=== PATIENT | female | born 1945 ===

== ENCOUNTER 2018-09-24 01:47 | Inpatient (IN) | payer MEDICARE ==
[2018-09-24 01:48] VITALS: BMI 28.3
[2018-09-24] MEDS ORDERED: Sodium Chloride 0.9% 1,000 ML IV ONE (02:16)
--- NOTE | 2018-09-24 02:44 | C.PDOC ---
History Of Present Illness 73 year old female presents to the ER with a complaint of intermittent chronic right subcostal and RUQ pain. Denies nausea or vomiting. Chief Complaint (Nursing): Abdominal Pain History Per: Patient History/Exam Limitations: no limitations Onset/Duration Of Symptoms: Days, Intermittent Episodes Current Symptoms Are (Timing): Still Present Location Of Pain/Discomfort: RUQ, Other (Right subcostal) Radiation Of Pain To:: None Associated Symptoms: denies: Nausea, Vomiting Exacerbating Factors: None Alleviating Factors: None Recent travel outside of the [place]: No Past Medical History Reviewed: Historical Data, Nursing Documentation, Vital Signs Vital Signs: Last Vital Signs Temp 97.6 F 09/24/18 01:56 Pulse 78 09/24/18 01:56 Resp 22 09/24/18 01:56 BP 159/90 H 09/24/18 01:56 Pulse Ox 100 09/24/18 01:56 - Medical History PMH: Gall Bladder Disease (stones), HTN, Hypothyroidism Surgical History: Appendectomy (12 yrs old) - [facility] Procedures PERCUTAN NEEDLE BIOPSY OF BREAST (09/23/13) Family History: States: Unknown Family Hx (Non-contributory) - Social History Hx Tobacco Use: No Hx Alcohol Use: No Hx Substance Use: No - Immunization History Hx Tetanus Toxoid Vaccination: Yes Hx Influenza Vaccination: No Hx Pneumococcal Vaccination: No Review Of Systems Constitutional: Negative for: Fever, Chills Cardiovascular: Negative for: Chest Pain, Palpitations Respiratory: Negative for: Cough, Shortness of Breath Gastrointestinal: Positive for: Other (right subcostal and RUQ pain). Negative for: Nausea, Vomiting Neurological: Negative for: Weakness, Numbness Physical Exam - Physical Exam Appears: Non-toxic, Other (Mild distress) Skin: Normal Color, Warm, Dry Head: Atraumatic, Normacephalic Oral Mucosa: Moist Neck: Normal, Supple Chest: Symmetrical, No Tenderness Cardiovascular: Rhythm Regular Respiratory: Normal Breath Sounds, No Rales, No Rhonchi, No Wheezing Gastrointestinal/Abdominal: Soft, Tenderness (RLQ and right lower costal area) Extremity: Normal ROM (x4) Neurological/Psych: Oriented x3, Normal Speech ED Course And Treatment - Laboratory Results Result Diagrams: 09/24/18 02:59 09/24/18 02:59 O2 Sat by Pulse Oximetry: 100 (Room air) Pulse Ox Interpretation: Normal Progress Note: CT abd/pel, CT chest, blood work, and EKG ordered. IV fluids and toradol administered. NG tube inserted without difficulty. Disposition Discussed With : Willi Sierra Doctor Will See Patient In The: Hospital Counseled Patient/Family Regarding: Diagnosis - Disposition Disposition: HOSPITALIZED Disposition Time: 06:12 Condition: STABLE - POA Present On Arrival: None - Clinical Impression Clinical Impression: Partial small bowel obstruction - Scribe Statement The provider has reviewed the documentation as recorded by the Stefanyibsamreen Alcantar All medical record entries made by the Stefanyibsamreen were at my direction and pe rsonally dictated by me. I have reviewed the chart and agree that the record accurately reflects my personal performance of the history, physical exam, medical decision making, and the department course for this patient. I have also personally directed, reviewed, and agree with the discharge instructions and disposition.
[2018-09-24 03:10] LABS: BASO % 0.6 % (0.0-2.0); EOS # 0.1 K/uL (0.0-0.7); EOS % 2.4 % (0.0-4.0); LYMPH # 1.9 K/uL (1.0-4.3); LYMPH % 50.9 % (20.0-40.0); MEAN CELL VOLUME 89.4 fL (81.0-99.0); MEAN CORPUSCULAR HEMOGLOBIN 29.7 pg (27.0-31.0); MEAN CORPUSCULAR HGB CONC 33.2 g/dL (33.0-37.0); MEAN PLATELET VOLUME 11.4 fL (7.2-11.7); MONO # 0.3 K/uL (0.0-0.8); NEUT # 1.4 K/uL (1.8-7.0); NEUT % 38.1 % (50.0-75.0); NRBC % 0.1 % (0.0-2.0); PROTHROMBIN TIME 11.3 SECONDS (9.7-12.2); RBC 4.7 Mil/uL (3.80-5.20); RED CELL DISTRIBUTION WIDTH 13.6 % (11.5-14.5); WHITE BLOOD COUNT 3.7 K/uL (4.8-10.8)
[2018-09-24 03:21] LABS: ALB/GLOB RATIO 1.7 (1.0-2.1); ALBUMIN 4.8 g/dL (3.5-5.0); ALT/SGPT 42 U/L (9-52); AST/SGOT 29 U/L (14-36); BLOOD UREA NITROGEN 18 mg/dL (7-17); CALCIUM 8.5 mg/dl (8.6-10.4); GFR NON-AFRICAN AMERICAN > 60
[2018-09-24] MEDS ORDERED: Iodixanol 320 MG/ML 100 ML BOTTLE IV ONE (04:58)
--- NOTE | 2018-09-24 09:06 | CT ---
Date of service: 09/24/2018 PROCEDURE: CT Chest with contrast (Pulmonary Angiogram) HISTORY: chest pain/ elevated D-dimer COMPARISON: None available. TECHNIQUE: Axial computed tomography images were obtained of the chest in the pulmonary arterial phase of enhancement. Coronal and sagittal reformatted images were created and reviewed. Intravenous contrast dose: 100 mL Visipaque 320 Radiation dose: Total exam DLP = 443.85 mGy-cm. This CT exam was performed using one or more of the following dose reduction techniques: Automated exposure control, adjustment of the mA and/or kV according to patient size, and/or use of iterative reconstruction technique. FINDINGS: PULMONARY ARTERIES: Unremarkable. No pulmonary embolism. AORTA: No acute findings. No thoracic aortic aneurysm. No aortic atherosclerotic calcification or mural plaque present. LUNGS: Unremarkable. No nodule, mass or pulmonary consolidation. PLEURAL SPACES: Unremarkable. No effusion or pneumothorax. HEART: Unremarkable. No cardiomegaly. No significant pericardial effusion. LYMPH NODES: No lymphadenopathy. BONES, CHEST WALL: Unremarkable. No fracture or destructive lesion OTHER FINDINGS: Very small hiatal hernia. Possible small gastric diverticulum of the herniated portion of the stomach. Multinodular enlarged left lobe of thyroid. Status post right hemithyroidectomy with surgical clips in thyroid. Recommend correlation with thyroid ultrasound examination. Sections through upper abdomen show multiple dilated loops of small bowel in the upper abdomen. Recommend correlation with CT abdomen/pelvis performed on same date. Please see report of this examination. IMPRESSION: No evidence of pulmonary embolism. Greater is multinodular left lobe of thyroid. Right hemithyroidectomy. Possible small bowel obstruction. Correlate with CT abdomen/pelvis small hiatal hernia with possible small gastric diverticulum of herniated segment. The preliminary findings for this examination were reported by [facility] at 6:04 a.m. on 09/24/2018. There is concurrence of this report with the preliminary findings.
--- NOTE | 2018-09-24 09:28 | CP.PCM.HP ---
<Dl Sullivan - Last Filed: 09/24/18 09:28> History of Present Illness - History of Present Illness History of Present Illness: Dl Sullivan PGY1 H&P for Dr. Judge Pt is a 73yoF with PMH of Hypothyroid, HTN, cholelithiasis, presenting to ED with abdominal pain. She reports the abdominal pain began 3 years ago, but acutely worsened over the past 7 days. She reports R sided abdominal pain that radiates to the back and R shoulder, which she rates 10/10. She describes the pain as burning and intermittent. She tried taking baking soda at home which did not provide relief. Pt reports associated vomiting all day yesterday, which was food-colored. Pt denies blood in vomit or stool. She reports normal formed bowel movements, denying any diarrhea or constipation. She complains of chills, but denies fever, chest pain, shortness of breath, or dysuria. She also complains of a burning sensation in the lower abdomen/bladder area, but denies pyuria. She currently reports improvement of the abdominal pain. Pt reports last colonoscopy and EGD 09/01, with normal results aside from benign diverticula. SxH: appendectomy 10y ago FamH: denies SocH: denies tobacco, etoh, or recreational drug use. Allergies: PCN Meds: as per EMR PMD: [place] Present on Admission - Present on Admission Any Indicators Present on Admission: No Review of Systems - Review of Systems Review of Systems: as per HPI Past Patient History - Past Social History Smoking Status: Never Smoked - CARDIAC Hx Hypertension: Yes - ENDOCRINE/METABOLIC Hx Hypothyroidism: Yes - GASTROINTESTINAL Hx Gall Bladder Disease: Yes (stones) - PSYCHIATRIC Hx Substance Use: No - SURGICAL HISTORY Hx Appendectomy: Yes (12 yrs old) - ANESTHESIA Hx Anesthesia: No Meds Allergies/Adverse Reactions: Allergies Allergy/AdvReac Type Severity Reaction Status Date / Time Penicillins Allergy Mild Verified 09/24/18 02:01 Physical Exam - Constitutional Appears: In Acute Distress - Head Exam Head Exam: ATRAUMATIC, NORMOCEPHALIC - Eye Exam Eye Exam: EOMI, Normal appearance, PERRL Pupil Exam: NORMAL ACCOMODATION - ENT Exam Additional comments: NG tube in place, draining yellow/green thick fluid - Neck Exam Neck exam: Positive for: Normal Inspection - Respiratory Exam Respiratory Exam: Clear to Auscultation Bilateral, NORMAL BREATHING PATTERN. absent: Rales, Rhonchi, Wheezes - Cardiovascular Exam Cardiovascular Exam: REGULAR RHYTHM, +S1, +S2. absent: Gallop, Rubs, Systolic Murmur - GI/Abdominal Exam GI & Abdominal Exam: Normal Bowel Sounds, Soft. absent: Distended, Firm, T enderness - Extremities Exam Extremities exam: Negative for: pedal edema - Neurological Exam Neurological exam: Alert, Oriented x3 - Psychiatric Exam Psychiatric exam: Normal Affect, Normal Mood - Skin Skin Exam: Normal Color Results - Vital Signs Recent Vital Signs: Last Vital Signs Temp 98.0 F 09/24/18 06:24 Pulse 72 09/24/18 07:51 Resp 14 09/24/18 07:51 BP 172/97 H 09/24/18 07:51 Pulse Ox 98 09/24/18 07:51 - Labs Result Diagrams: 09/24/18 02:59 09/24/18 02:59 Labs: Laboratory Results - last 24 hr 09/24/18 09/24/18 09/24/18 02:59 02:59 02:59 WBC 3.7 L RBC 4.70 Hgb 14.0 Hct 42.0 MCV 89.4 MCH 29.7 MCHC 33.2 RDW 13.6 Plt Count 135 MPV 11.4 Neut % (Auto) 38.1 L Lymph % (Auto) 50.9 H [place] % (Auto) 8.0 Eos % (Auto) 2.4 Baso % (Auto) 0.6 Neut # (Auto) 1.4 L Lymph # (Auto) 1.9 [place] # (Auto) 0.3 Eos # (Auto) 0.1 Baso # (Auto) 0.0 PT 11.3 INR 1.0 APTT 28 D-Dimer, Quantitative 288 H Sodium 139 Potassium 4.2 Chloride 100 Carbon Dioxide 28 Anion Gap 15 BUN 18 H Creatinine 0.7 Est GFR ( Amer) > 60 Est GFR (Non-Af Amer) > 60 Random Glucose 112 H Calcium 8.5 L Total Bilirubin 0.4 AST 29 ALT 42 Alkaline Phosphatase 47 Troponin I < 0.0120 Total Protein 7.7 Albumin 4.8 Globulin 2.9 Albumin/Globulin Ratio 1.7 Assessment & Plan - Assessment and Plan (Free Text) Assessment: 73yoF with PMH of Hypothyroid, HTN, cholelithiasis, presenting to ED with abdominal pain, admitted for further evaluation and treatment of partial SBO. Plan: SBO - CT abdomen/pelvis: partial SBO, transition zone in LLQ. f/u official read - CT chest: no PE - NG tube in place, draining thick yellow/green fluid - NS @150cc/hr - ibuprofen 400mg PO q6h PRN - tylenol 650mg PO q6h PRN - toradol 30mg IV q6h PRN - zofran 4mg IV q6h PRN - f/u CXR 12pm and tomorrow 6am to avoid fluid overload - f/u lactate 12pm and 4pm - f/u UA - General surgery consulted, Dr. Poe - recs appreciated - GI consulted, Dr. Pack - f/u recs HTN - resume home atenolol 50mg PO daily H/o Hypothyroid - f/u TSH, free T4 - resume home synthroid 75mcg PO daily PPx GI: not indicated at this time DVT: SCDs Pt seen and case reviewed with Dr. Judge <Jesus Judge - Last Filed: 09/24/18 16:49> Results - Vital Signs Recent Vital Signs: Last Vital Signs Temp 98.0 F 09/24/18 06:24 Pulse 78 09/24/18 15:05 Resp 18 09/24/18 15:05 BP 152/89 H 09/24/18 15:05 Pulse Ox 97 09/24/18 15:05 - Labs Result Diagrams: 09/24/18 02:59 09/24/18 02:59 Labs: Laboratory Results - last 24 hr 09/24/18 09/24/18 09/24/18 02:59 02:59 02:59 WBC 3.7 L RBC 4.70 Hgb 14.0 Hct 42.0 MCV 89.4 MCH 29.7 MCHC 33.2 RDW 13.6 Plt Count 135 MPV 11.4 Neut % (Auto) 38.1 L Lymph % (Auto) 50.9 H [place] % (Auto) 8.0 Eos % (Auto) 2.4 Baso % (Auto) 0.6 Neut # (Auto) 1.4 L Lymph # (Auto) 1.9 [place] # (Auto) 0.3 Eos # (Auto) 0.1 Baso # (Auto) 0.0 PT 11.3 INR 1.0 APTT 28 D-Dimer, Quantitative 288 H Sodium 139 Potassium 4.2 Chloride 100 Carbon Dioxide 28 Anion Gap 15 BUN 18 H Creatinine 0.7 Est GFR ( Amer) > 60 Est GFR (Non-Af Amer) > 60 Random Glucose 112 H Lactic Acid Calcium 8.5 L Total Bilirubin 0.4 AST 29 ALT 42 Alkaline Phosphatase 47 Troponin I < 0.0120 Total Protein 7.7 Albumin 4.8 Globulin 2.9 Albumin/Globulin Ratio 1.7 09/24/18 12:50 WBC RBC Hgb Hct MCV MCH MCHC RDW Plt Count MPV Neut % (Auto) Lymph % (Auto) [place] % (Auto) Eos % (Auto) Baso % (Auto) Neut # (Auto) Lymph # (Auto) [place] # (Auto) Eos # (Auto) Baso # (Auto) PT INR APTT D-Dimer, Quantitative Sodium Potassium Chloride Carbon Dioxide Anion Gap BUN Creatinine Est GFR ( Amer) Est GFR (Non-Af Amer) Random Glucose Lactic Acid 1.3 Calcium Total Bilirubin AST ALT Alkaline Phosphatase Troponin I Total Protein Albumin Globulin Albumin/Globulin Ratio Attending/Attestation - Attestation I have personally seen and examined this patient.: Yes I have fully participated in the care of the patient.: Yes I have reviewed all pertinent clinical information: Yes Notes (Text): 09/24/18 16:43 Medical attending: Patient was seen and examined by me. Agree with the above note by the medical records custodian The patient had already had an NGT placed earlier in the morning and had been evaluated by surgery as well. The patient reported some relief with the NGT however from what she tells us was a very difficult for her this morning. The CT scan showed there was at least a partial SBO Patient will be on IVF as well as we will monitor serum lactic acid - and if need to ABG as well Because she is getting a lot of IVF check a portable CXRAY tommorow in case of fluid overload Jesus Judge
[2018-09-24] MEDS: Sodium Chloride 0.9% 1,000 ML IV SCH ×3 (09:30→19:06)
--- NOTE | 2018-09-24 10:50 | RAD ---
Date of service: 09/24/2018 HISTORY: pt with SBO COMPARISON: 06/22/2013 FINDINGS: LUNGS: No active pulmonary disease. PLEURA: Elevated right hemidiaphragm common nonspecific. Costophrenic angles are clear. No pneumothorax. CARDIOVASCULAR: No aortic atherosclerotic calcification present. Normal cardiac size. No pulmonary vascular congestion. Nasogastric tube extends to left upper quadrant of abdomen. OSSEOUS STRUCTURES: No significant abnormalities. VISUALIZED UPPER ABDOMEN: Normal. OTHER FINDINGS: Surgical clips in right side of thoracic inlet, nonspecific. IMPRESSION: No active disease.
--- NOTE | 2018-09-24 12:17 | CT ---
Date of service:09/24/2018 CT chest, abdomen, and pelvis without IV contrast Indication: chest pain Technique: Contiguous axial images of the chest, abdomen, and pelvis without oral or IV contrast. Coronal and Sagittal reformats generated and reviewed. This CT exam was performed using 1 or more of the following dose reduction techniques: Automated exposure control, adjustment of the MAA and/or kV according to patient size, and/or use of iterative reconstruction technique. Radiation dose: Total exam DLP = 517.02 MGy-cm. Comparison: CT chest performed 09/24/18, abdominal ultrasound performed 06/22/15, CT abdomen and pelvis with contrast performed 04/14/15 Findings: Visualized portions of the inferior thyroid gland; right thyroidectomy. Enlarged heterogeneous left thyroid gland containing coarse calcifications and numerous nodules largest measuring approximately 1.2 cm. Substernal extension of the left thyroid gland. The unenhanced mediastinal and hilar vascular structures appear grossly unremarkable. The heart appears within normal limits of size. There is no focal consolidation, significant pleural effusion, or definite pneumothorax evident. 5 mm right lower lobe nodule (series 4, image 42). 13 mm hypodense mass, posterior inferior right hepatic lobe (series 3, image 99). Nonobstructing bilateral renal calculi. No hydronephrosis. The noncontrast spleen, pancreas, adrenal glands, and gallbladder appear unremarkable. The stomach is nondistended. Lack of oral contrast limits evaluation for bowel pathology. Dilated fluid-filled small bowel loops with evidence of transition in the left lower quadrant; appearance consistent with small bowel obstruction. There is no definite free air. Uterus is present. The urinary bladder appears unremarkable. Degenerative changes of the spine. Vacuum disc phenomenon at L5-S1. Impression: Evidence of small-bowel obstruction with transition point in the left lower quadrant. Indeterminate 13 mm hypodense mass within the posterior inferior right hepatic lobe. This finding is been characterized as a cyst on prior imaging studies. Nonobstructing renal calculi. 5 mm right lower lobe pulmonary nodule. According to the 2017 Fleischner criteria, if the patient is low risk, no routine follow-up is recommended. If the patient is high risk, an optional CT at 12 months is recommended. Visualized portions of the inferior thyroid gland; right thyroidectomy. Enlarged heterogeneous left thyroid gland containing coarse calcifications and numerous nodules largest measuring approximately 1.2 cm. Substernal extension of the left thyroid gland. Preliminary impression was provided by [employer]. Additional incidental findings as above. Study marked for PA review.
[2018-09-24] MEDS: Levothyroxine 75 MCG TAB PO SCH (14:04)
--- NOTE | 2018-09-24 16:07 | RAD ---
Date of service: 09/24/2018 HISTORY: eval SBO COMPARISON: Not available FINDINGS: BOWEL: Normal bowel gas pattern. There is mild retention of the nephrographic contrast status post CT examination of the same date. Small amount of excreted contrast in the urinary bladder. A nasogastric tube is seen with its tip in the region of the distal thoracic esophagus. It is not positioned within the gastric lumen on the basis of this examination. BONES: Normal. OTHER FINDINGS: None. IMPRESSION: Nasogastric tube is positioned in the distal thoracic esophagus and should be replaced or repositioned.
--- NOTE | 2018-09-24 18:04 | CP.PCM.CON ---
History of Present Illness - History of Present Illness History of Present Illness: General Surgery Consult Re: Partial SBO and RUQ pain HPI: 73F presents to the ED complaining of intermittent RUQ pain that radiates to the back and shoulder. Pain has been present for the past 3 years and started to get progressively worse starting last week. Pt mentions that she has not been eating her normal diet due to pain, eating occasionally makes it worse but it also occurs when at rest or when doing chores. + emesis yesterday. She has been worked up for this pain in the past but nothing has been found to be wrong before. Reports Chills. Denies fever, headache, SOB, chest pain, dysuria, hematuria, melena, hematochezia, diarrhea. Last BM yesterday was normal.No other complaints and pain somewhat improved at this time. PMH: Hypothyroid, HTN PSH: hemithyroidectomy, Lasik. Denies any abdominal surgery. SH: Denies tobacco, EtOH, and drug use. FH: Denies All: PCN Meds: See MAR Review of Systems - Review of Systems All systems: reviewed and no additional remarkable complaints except (as per HPI) Past Patient History - Past Medical History & Family History Past Medical History?: Yes - Past Social History Smoking Status: Never Smoked - CARDIAC Hx Hypertension: Yes - PULMONARY Hx Respiratory Disorders: No - NEUROLOGICAL Hx Neurological Disorder: No - HEENT Hx HEENT Problems: No - RENAL Hx Chronic Kidney Disease: No - ENDOCRINE/METABOLIC Hx Hypothyroidism: Yes - HEMATOLOGICAL/ONCOLOGICAL Hx Blood Disorders: No - INTEGUMENTARY Hx Dermatological Problems: No - MUSCULOSKELETAL/RHEUMATOLOGICAL Hx Musculoskeletal Disorders: No Hx Falls: No - GASTROINTESTINAL Hx Gall Bladder Disease: Yes (stones) - GENITOURINARY/GYNECOLOGICAL Hx Genitourinary Disorders: No - PSYCHIATRIC Hx Substance Use: No - SURGICAL HISTORY Hx Appendectomy: Yes (12 yrs old) - ANESTHESIA Hx Anesthesia: Yes Hx Anesthesia Reactions: No Meds Allergies/Adverse Reactions: Allergies Allergy/AdvReac Type Severity Reaction Status Date / Time Penicillins Allergy Mild Verified 09/24/18 02:01 - Medications Medications: Current Medications Acetaminophen (Tylenol 325mg Tab) 650 mg PO Q6 PRN PRN Reason: Fever >100.4 F Atenolol (Tenormin) 50 mg PO DAILY KYLE Last Admin: 09/24/18 14:04 Dose: Not Given Sodium Chloride (Sodium Chloride 0.9%) 1,000 mls @ 150 mls/hr IV .Q6H40M [facility] Last Admin: 09/24/18 16:00 Dose: Not Given Ibuprofen (Motrin Tab) 400 mg PO Q6 PRN PRN Reason: Pain, Mild (1-3) Ketorolac Tromethamine (Toradol) 30 mg IV Q6 PRN PRN Reason: Pain, moderate (4-7) Levothyroxine Sodium (Synthroid) 75 mcg PO DAILY@0630 [facility] Last Admin: 09/24/18 14:04 Dose: Not Given Ondansetron HCl (Zofran Inj) 4 mg IVP Q6 PRN PRN Reason: Nausea/Vomiting Physical Exam - Constitutional Appears: Non-toxic, No Acute Distress - Head Exam Head Exam: ATRAUMATIC, NORMOCEPHALIC - Eye Exam Eye Exam: EOMI. absent: Scleral icterus - ENT Exam ENT Exam: Mucous Membranes Dry Additional comments: trachea midline, NGT in place - Respiratory Exam Respiratory Exam: NORMAL BREATHING PATTERN. absent: Respiratory Distress - Cardiovascular Exam Cardiovascular Exam: RRR, +S1, +S2 - GI/Abdominal Exam GI & Abdominal Exam: Soft, Tenderness (in RUQ). absent: Distended, Firm, Guarding, Rebound, Rigid - Rectal Exam Rectal Exam: Deferred - Extremities Exam Extremities exam: Positive for: normal capillary refill, pedal pulses present. Negative for: calf tenderness - Back Exam Back exam: CVA tenderness (L), CVA tenderness (R) - Neurological Exam Neurological exam: Alert, Oriented x3 - Skin Skin Exam: Dry, Warm Results - Vital Signs Recent Vital Signs: Last Vital Signs Temp 97.8 F 09/24/18 17:29 Pulse 77 09/24/18 17:29 Resp 18 09/24/18 17:29 BP 152/64 H 09/24/18 17:29 Pulse Ox 97 09/24/18 17:29 - Labs Result Diagrams: 09/24/18 02:59 09/24/18 02:59 Labs: Laboratory Results - last 24 hr 09/24/18 09/24/18 09/24/18 02:59 02:59 02:59 WBC 3.7 L RBC 4.70 Hgb 14.0 Hct 42.0 MCV 89.4 MCH 29.7 MCHC 33.2 RDW 13.6 Plt Count 135 MPV 11.4 Neut % (Auto) 38.1 L Lymph % (Auto) 50.9 H [place] % (Auto) 8.0 Eos % (Auto) 2.4 Baso % (Auto) 0.6 Neut # (Auto) 1.4 L Lymph # (Auto) 1.9 [place] # (Auto) 0.3 Eos # (Auto) 0.1 Baso # (Auto) 0.0 PT 11.3 INR 1.0 APTT 28 D-Dimer, Quantitative 288 H Sodium 139 Potassium 4.2 Chloride 100 Carbon Dioxide 28 Anion Gap 15 BUN 18 H Creatinine 0.7 Est GFR ( Amer) > 60 Est GFR (Non-Af Amer) > 60 Random Glucose 112 H Lactic Acid Calcium 8.5 L Total Bilirubin 0.4 AST 29 ALT 42 Alkaline Phosphatase 47 Troponin I < 0.0120 Total Protein 7.7 Albumin 4.8 Globulin 2.9 Albumin/Globulin Ratio 1.7 09/24/18 12:50 WBC RBC Hgb Hct MCV MCH MCHC RDW Plt Count MPV Neut % (Auto) Lymph % (Auto) [place] % (Auto) Eos % (Auto) Baso % (Auto) Neut # (Auto) Lymph # (Auto) [place] # (Auto) Eos # (Auto) Baso # (Auto) PT INR APTT D-Dimer, Quantitative Sodium Potassium Chloride Carbon Dioxide Anion Gap BUN Creatinine Est GFR ( Amer) Est GFR (Non-Af Amer) Random Glucose Lactic Acid 1.3 Calcium Total Bilirubin AST ALT Alkaline Phosphatase Troponin I Total Protein Albumin Globulin Albumin/Globulin Ratio - Imaging and Cardiology CT scan - abdomen Status: Image reviewed by me, Report reviewed by me Assessment & Plan - Assessment and Plan (Free Text) Assessment: 73F with chronic intermittent RUQ pain Plan: HIDA with CCK in AM NPO p MN for test Monitor bowel function D/W Dr. Deepika Boudreaux PGY4
[2018-09-24 22:20] LABS: SQUAMOUS EPITHIAL 5 /hpf (0-5); URINE BACTERIA RARE (<OCC); URINE BILIRUBIN NEGATIVE (NEGATIVE); URINE BLOOD NEGATIVE (NEGATIVE); URINE CLARITY Clear (Clear); URINE COLOR Yellow (YELLOW); URINE GLUCOSE (UA) NORMAL (Normal); URINE LEUKOCYTE ESTERASE NEG Leu/uL (Negative); URINE PROTEIN 1+ mg/dL (NEGATIVE); URINE UROBILINOGEN NORMAL mg/dL (0.2-1.0)
[2018-09-25 00:54] VITALS: RESP 20
[2018-09-25] MEDS: Sodium Chloride 0.9% 1,000 ML IV SCH ×2 (04:21→05:39)
[2018-09-25 06:20] LABS: BASO % 0.4 % (0.0-2.0); EOS # 0.1 K/uL (0.0-0.7); EOS % 2.7 % (0.0-4.0); HEMOGLOBIN 12.3 g/dL (11.0-16.0); LYMPH # 1.8 K/uL (1.0-4.3); LYMPH % 41.2 % (20.0-40.0); MEAN CELL VOLUME 90.5 fL (81.0-99.0); MEAN CORPUSCULAR HEMOGLOBIN 29.6 pg (27.0-31.0); MEAN CORPUSCULAR HGB CONC 32.7 g/dL (33.0-37.0); MEAN PLATELET VOLUME 10.7 fL (7.2-11.7); MONO # 0.3 K/uL (0.0-0.8); MONO % 7.9 % (0.0-10.0); NEUT # 2.1 K/uL (1.8-7.0); NEUT % 47.8 % (50.0-75.0); RBC 4.17 Mil/uL (3.80-5.20); RED CELL DISTRIBUTION WIDTH 14.1 % (11.5-14.5); WHITE BLOOD COUNT 4.4 K/uL (4.8-10.8)
[2018-09-25] MEDS: Levothyroxine 75 MCG TAB PO SCH (06:39)
[2018-09-25 06:42] LABS: ALB/GLOB RATIO 1.3 (1.0-2.1); ALBUMIN 3.6 g/dL (3.5-5.0); ALT/SGPT 37 U/L (9-52); AST/SGOT 25 U/L (14-36); BLOOD UREA NITROGEN 16 mg/dL (7-17); CALCIUM 7.6 mg/dl (8.6-10.4); GFR NON-AFRICAN AMERICAN > 60
[2018-09-25 07:03] LABS: HEPATITIS B SURFACE AG Negative (NEGATIVE)
[2018-09-25 07:08] LABS: HEPATITIS A IGM NEGATIVE (NEGATIVE); HEPATITIS B CORE AB NEGATIVE (NEGATIVE)
[2018-09-25 07:20] LABS: HEPATITIS C ANTIBODY NEGATIVE (NEGATIVE)
--- NOTE | 2018-09-25 08:06 | CP.PCM.CON ---
History of Present Illness - History of Present Illness History of Present Illness: This is a 73 year old woman with abdominal pain. Patient is known to me from the office. She was originally seen 06/25/2017 for episodic right upper quadrant pain lasting up to one week at a time. She had already undergone colonoscopy 08/17/2015 which showed diverticulosis of ascending colon and EGD 09/26/2015 which showed hiatal hernia and acute gastritis. CT scan 05/01/2018 showed fatty liver, 1.6 cm hepatic cyst, right kidney stone. She presented to the ER 09/24/2018 with a one-week history of recurrent RUQ pain radiating to the back and right shoulder, burning, accompanied by nausea and vomiting. Evaluation in the ER included CT scan, which showed dilated small bowel loops with transition in the LLQ, consistent with partial SBO. At present, she denies having abdominal pain, nausea, vomiting, heartburn, diarrhea or rectal bleeding. She has not had a bowel movement since Friday. Review of Systems - Review of Systems All systems: reviewed and no additional remarkable complaints except - Constitutional Constitutional: absent: Chills, Fever, Headache - Cardiovascular Cardiovascular: absent: Chest Pain, Palpitations - Respiratory Respiratory: absent: Cough, Dyspnea - Gastrointestinal Gastrointestinal: Abdominal Pain, Constipation, Nausea, Vomiting. absent: Diarrhea, Heartburn, Hematochezia, Melena - Genitourinary Genitourinary: absent: Dysuria, Hematuria Past Patient History - Past Medical History & Family History Past Medical History?: Yes - Past Social History Smoking Status: Never Smoked - CARDIAC Hx Hypertension: Yes - PULMONARY Hx Respiratory Disorders: No - NEUROLOGICAL Hx Neurological Disorder: No - HEENT Hx HEENT Problems: No - RENAL Hx Chronic Kidney Disease: No - ENDOCRINE/METABOLIC Hx Hypothyroidism: Yes - HEMATOLOGICAL/ONCOLOGICAL Hx Blood Disorders: No - INTEGUMENTARY Hx Dermatological Problems: No - MUSCULOSKELETAL/RHEUMATOLOGICAL Hx Musculoskeletal Disorders: No Hx Falls: No - GASTROINTESTINAL Hx Gall Bladder Disease: Yes (stones) - GENITOURINARY/GYNECOLOGICAL Hx Genitourinary Disorders: No - PSYCHIATRIC Hx Substance Use: No - SURGICAL HISTORY Hx Appendectomy: Yes (12 yrs old) - ANESTHESIA Hx Anesthesia: Yes Hx Anesthesia Reactions: No Meds Allergies/Adverse Reactions: Allergies Allergy/AdvReac Type Severity Reaction Status Date / Time Penicillins Allergy Mild Verified 09/24/18 02:01 - Medications Medications: Current Medications Acetaminophen (Tylenol 325mg Tab) 650 mg PO Q6 PRN PRN Reason: Fever >100.4 F Atenolol (Tenormin) 50 mg PO DAILY [facility] Last Admin: 09/24/18 14:04 Dose: Not Given Sodium Chloride (Sodium Chloride 0.9%) 1,000 mls @ 150 mls/hr IV .Q6H40M [facility] Last Admin: 09/25/18 05:39 Dose: Not Given Ibuprofen (Motrin Tab) 400 mg PO Q6 PRN PRN Reason: Pain, Mild (1-3) Ketorolac Tromethamine (Toradol) 30 mg IV Q6 PRN PRN Reason: Pain, moderate (4-7) Last Admin: 09/25/18 06:46 Dose: 30 mg Levothyroxine Sodium (Synthroid) 75 mcg PO DAILY@0630 [facility] Last Admin: 09/25/18 06:39 Dose: Not Given Ondansetron HCl (Zofran Inj) 4 mg IVP Q6 PRN PRN Reason: Nausea/Vomiting Physical Exam - Constitutional Appears: No Acute Distress - Head Exam Head Exam: ATRAUMATIC, NORMOCEPHALIC - Eye Exam Eye Exam: EOMI, PERRL - Neck Exam Neck exam: Negative for: Lymphadenopathy, Thyromegaly - Respiratory Exam Respiratory Exam: NORMAL BREATHING PATTERN. absent: Rales, Rhonchi, Wheezes - Cardiovascular Exam Cardiovascular Exam: REGULAR RHYTHM, +S1, +S2. absent: Gallop, Rubs, Systolic Murmur - GI/Abdominal Exam GI & Abdominal Exam: Normal Bowel Sounds, Soft. absent: Mass, Organomegaly, Tenderness - Rectal Exam Rectal Exam: Deferred - Extremities Exam Extremities exam: Negative for: calf tenderness, pedal edema Results - Vital Signs Recent Vital Signs: Last Vital Signs Temp 97.3 F L 09/25/18 07:45 Pulse 73 09/25/18 07:45 Resp 20 09/25/18 07:45 BP 123/68 09/25/18 07:45 Pulse Ox 96 09/25/18 07:45 - Labs Result Diagrams: 09/25/18 06:13 09/25/18 06:13 Labs: Laboratory Results - last 24 hr 09/24/18 09/24/18 09/24/18 12:50 19:47 19:47 WBC RBC Hgb Hct MCV MCH MCHC RDW Plt Count MPV Neut % (Auto) Lymph % (Auto) [place] % (Auto) Eos % (Auto) Baso % (Auto) Neut # (Auto) Lymph # (Auto) [place] # (Auto) Eos # (Auto) Baso # (Auto) Sodium Potassium Chloride Carbon Dioxide Anion Gap BUN Creatinine Est GFR ( Amer) Est GFR (Non-Af Amer) Random Glucose Hemoglobin A1c Lactic Acid 1.3 Calcium Total Bilirubin AST ALT Alkaline Phosphatase Total Protein Albumin Globulin Albumin/Globulin Ratio Free T4 1.07 TSH 3rd Generation 0.21 L Urine Color Urine Clarity Urine pH Ur Specific [place] Urine Protein Urine Glucose (UA) Urine Ketones Urine Blood Urine Nitrate Urine Bilirubin Urine Urobilinogen Ur Leukocyte Esterase Urine WBC (Auto) Urine RBC (Auto) Ur Squamous Epith Cells Urine Bacteria Hepatitis A IgM Ab Hep Bs Antigen Hep B Core IgM Ab Hepatitis C Antibody 09/24/18 09/24/18 09/25/18 19:47 21:58 06:13 WBC 4.4 L RBC 4.17 Hgb 12.3 Hct 37.7 MCV 90.5 MCH 29.6 MCHC 32.7 L RDW 14.1 Plt Count 117 L MPV 10.7 Neut % (Auto) 47.8 L Lymph % (Auto) 41.2 H [place] % (Auto) 7.9 Eos % (Auto) 2.7 Baso % (Auto) 0.4 Neut # (Auto) 2.1 Lymph # (Auto) 1.8 [place] # (Auto) 0.3 Eos # (Auto) 0.1 Baso # (Auto) 0.0 Sodium Potassium Chloride Carbon Dioxide Anion Gap BUN Creatinine Est GFR ( Amer) Est GFR (Non-Af Amer) Random Glucose Hemoglobin A1c Lactic Acid 1.4 Calcium Total Bilirubin AST ALT Alkaline Phosphatase Total Protein Albumin Globulin Albumin/Globulin Ratio Free T4 TSH 3rd Generation Urine Color Yellow Urine Clarity Clear Urine pH 7.0 Ur Specific [place] 1.028 Urine Protein 1+ H Urine Glucose (UA) Normal Urine Ketones 1+ H Urine Blood Negative Urine Nitrate Negative Urine Bilirubin Negative Urine Urobilinogen Normal Ur Leukocyte Esterase Neg Urine WBC (Auto) 1 Urine RBC (Auto) 1 Ur Squamous Epith Cells 5 Urine Bacteria Rare Hepatitis A IgM Ab Hep Bs Antigen Hep B Core IgM Ab Hepatitis C Antibody 09/25/18 09/25/18 09/25/18 06:13 06:13 06:13 WBC RBC Hgb Hct MCV MCH MCHC RDW Plt Count MPV Neut % (Auto) Lymph % (Auto) [place] % (Auto) Eos % (Auto) Baso % (Auto) Neut # (Auto) Lymph # (Auto) [place] # (Auto) Eos # (Auto) Baso # (Auto) Sodium 139 Potassium 3.8 Chloride 106 Carbon Dioxide 27 Anion Gap 10 BUN 16 Creatinine 0.6 L Est GFR ( Amer) > 60 Est GFR (Non-Af Amer) > 60 Random Glucose 85 D Hemoglobin A1c 5.7 Lactic Acid Calcium 7.6 L Total Bilirubin 0.6 AST 25 ALT 37 Alkaline Phosphatase 46 Total Protein 6.3 Albumin 3.6 Globulin 2.7 Albumin/Globulin Ratio 1.3 Free T4 TSH 3rd Generation Urine Color Urine Clarity Urine pH Ur Specific [place] Urine Protein Urine Glucose (UA) Urine Ketones Urine Blood Urine Nitrate Urine Bilirubin Urine Urobilinogen Ur Leukocyte Esterase Urine WBC (Auto) Urine RBC (Auto) Ur Squamous Epith Cells Urine Bacteria Hepatitis A IgM Ab Negative Hep Bs Antigen Negative Hep B Core IgM Ab Negative Hepatitis C Antibody Negative Assessment & Plan (1) RUQ pain Assessment and Plan: Patient has a history of episodic RUQ pain for four years, frequently related to physical activity, for example lifting. She has had multiple CT scans, but the scan done in the ER on this admission showed a partial SBO, which is a new finding. Previous imaging studies have not documented gallstones. HIDA scan with CCK has been ordered, but the CCK has been unavailable. Recommend CT enterography. Patient may follow up in the office. Status: Acute
--- NOTE | 2018-09-25 08:25 | CP.PCM.PN ---
Subjective - Date & Time of Evaluation Date of Evaluation: 09/25/18 Time of Evaluation: 06:30 - Subjective Subjective: Surgery: Dr. Poe Pt seen and examined. No acute overnight events. States she feels better now that the NGT is out. She states her abdominal pain has resolved and denies any episodes of nausea/vomiting. Denies fevers/chills. Objective - Vital Signs/Intake and Output Vital Signs (last 24 hours): Temp Pulse Resp BP Pulse Ox 97.3 F L 73 20 123/68 96 09/25/18 07:45 09/25/18 07:45 09/25/18 07:45 09/25/18 07:45 09/25/18 07:45 Intake and Output: 09/25/18 09/25/18 06:59 18:59 Intake Total 2400 Balance 2400 - Medications Medications: Current Medications Acetaminophen (Tylenol 325mg Tab) 650 mg PO Q6 PRN PRN Reason: Fever >100.4 F Atenolol (Tenormin) 50 mg PO DAILY [facility] Last Admin: 09/24/18 14:04 Dose: Not Given Sodium Chloride (Sodium Chloride 0.9%) 1,000 mls @ 150 mls/hr IV .Q6H40M [facility] Last Admin: 09/25/18 05:39 Dose: Not Given Ibuprofen (Motrin Tab) 400 mg PO Q6 PRN PRN Reason: Pain, Mild (1-3) Ketorolac Tromethamine (Toradol) 30 mg IV Q6 PRN PRN Reason: Pain, moderate (4-7) Last Admin: 09/25/18 06:46 Dose: 30 mg Levothyroxine Sodium (Synthroid) 75 mcg PO DAILY@0630 [facility] Last Admin: 09/25/18 06:39 Dose: Not Given Ondansetron HCl (Zofran Inj) 4 mg IVP Q6 PRN PRN Reason: Nausea/Vomiting - Labs Labs: 09/25/18 06:13 09/25/18 06:13 PT 11.3 SECONDS (9.7-12.2) 09/24/18 02:59 INR 1.0 09/24/18 02:59 APTT 28 SECONDS (21-34) 09/24/18 02:59 - Constitutional Appears: Well, No Acute Distress - Head Exam Head Exam: ATRAUMATIC, NORMOCEPHALIC - Eye Exam Eye Exam: Normal appearance - ENT Exam ENT Exam: Mucous Membranes Moist - Respiratory Exam Respiratory Exam: NORMAL BREATHING PATTERN - Cardiovascular Exam Cardiovascular Exam: RRR - GI/Abdominal Exam GI & Abdominal Exam: Soft. absent: Distended, Guarding, Tenderness - Neurological Exam Neurological Exam: Alert, Awake, Oriented x3 - Skin Skin Exam: Dry, Warm Assessment and Plan - Assessment and Plan (Free Text) Assessment: 73F with abdominal pain r/o cholecystitis Plan: - f/u HIDA - will give further recs pending HIDA scan - d/w Dr. Deepika Lucio
[2018-09-25] MEDS ORDERED: WATER FOR INJECTION IV ONE (10:00)
[2018-09-25] MEDS ORDERED: SINCALIDE IV ONE (10:00)
--- NOTE | 2018-09-25 12:32 | RAD ---
Date of service: 09/25/2018 HISTORY: pt with SBO COMPARISON: No prior. FINDINGS: LUNGS: The lungs are well inflated and clear. PLEURA: No pleural effusions or pneumothorax. CARDIOVASCULAR: The heart is normal in size. No aortic atherosclerotic calcifications present. OSSEOUS STRUCTURES: Within normal limits for the patient's age. VISUALIZED UPPER ABDOMEN: Normal. OTHER FINDINGS: There is redemonstration of multiple surgical clips in the right upper paratracheal region. IMPRESSION: No active pulmonary disease.
--- NOTE | 2018-09-25 13:20 | NM ---
Date of service: 09/25/2018 PROCEDURE: Gallbladder ejection study with CCK HISTORY: R/O cholecystitis and biliary pathology COMPARISON: 12/04/2015 hepatic biliary scan TECHNIQUE: 6.1 mCi of technetium 99m Mebrofenin was administered intravenously. Calculated dose of cholecystokinin administered per protocol. 1.34 mcg. FINDINGS: Prompt uptake in the liver. Prompt accumulation of radionuclide in a distended gallbladder. Calculated gallbladder ejection fraction 27% IMPRESSION: Depressed gallbladder ejection fraction calculated to be 27%. Normal gallbladder ejection fraction threshold 35%.
--- NOTE | 2018-09-25 13:43 | CP.PCM.PN ---
<Carolina Rivera P - Last Filed: 09/25/18 21:35> Subjective - Date & Time of Evaluation Date of Evaluation: 09/25/18 Time of Evaluation: 09:00 - Subjective Subjective: Progress note for Dr. Judge. Patient seen and evaluated after HIDA scan. She had the NG tube removed and feels better. States she had a bowel movement and is tolerating liquid diet. Denies any abdominal pain, nausea, vomiting, fever, chills, chest pain and short ness of breath. Objective - Vital Signs/Intake and Output Vital Signs (last 24 hours): Temp Pulse Resp BP Pulse Ox 97.3 F L 73 20 123/68 96 09/25/18 07:45 09/25/18 07:45 09/25/18 07:45 09/25/18 07:45 09/25/18 07:45 Intake and Output: 09/25/18 09/25/18 06:59 18:59 Intake Total 2400 Balance 2400 - Medications Medications: Current Medications Acetaminophen (Tylenol 325mg Tab) 650 mg PO Q6 PRN PRN Reason: Fever >100.4 F Atenolol (Tenormin) 50 mg PO DAILY [facility] Last Admin: 09/25/18 11:42 Dose: Not Given Bisacodyl (Dulcolax) 10 mg [place] ONCE ONE Stop: 09/25/18 14:01 Ibuprofen (Motrin Tab) 400 mg PO Q6 PRN PRN Reason: Pain, Mild (1-3) Ketorolac Tromethamine (Toradol) 30 mg IV Q6 PRN PRN Reason: Pain, moderate (4-7) Last Admin: 09/25/18 06:46 Dose: 30 mg Levothyroxine Sodium (Synthroid) 75 mcg PO DAILY@0630 [facility] Last Admin: 09/25/18 06:39 Dose: Not Given Ondansetron HCl (Zofran Inj) 4 mg IVP Q6 PRN PRN Reason: Nausea/Vomiting - Labs Labs: 09/25/18 06:13 09/25/18 06:13 PT 11.3 SECONDS (9.7-12.2) 09/24/18 02:59 INR 1.0 09/24/18 02:59 APTT 28 SECONDS (21-34) 09/24/18 02:59 - Constitutional Appears: No Acute Distress - Head Exam Head Exam: ATRAUMATIC, NORMOCEPHALIC - Eye Exam Eye Exam: EOMI, PERRL - ENT Exam ENT Exam: Mucous Membranes Moist - Neck Exam Neck Exam: Full ROM, Normal Inspection - Respiratory Exam Respiratory Exam: Clear to Ausculation Bilateral, NORMAL BREATHING PATTERN. absent: Rales, Rhonchi, Wheezes - Cardiovascular Exam Cardiovascular Exam: REGULAR RHYTHM, +S1, +S2 - GI/Abdominal Exam GI & Abdominal Exam: Soft, Hypoactive Bowel Sounds. absent: Guarding, Tenderness - Extremities Exam Extremities Exam: Full ROM, Normal Capillary Refill, Normal Inspection. absent: Calf Tenderness, Pedal Edema, Tenderness - Neurological Exam Neurological Exam: Alert, Awake, Normal Gait, Oriented x3 - Psychiatric Exam Psychiatric exam: Normal Affect, Normal Mood - Skin Skin Exam: Dry, Normal Color, Warm Assessment and Plan - Assessment and Plan (Free Text) Plan: 73yoF with PMH of Hypothyroid, HTN, cholelithiasis, presenting to ED with abdominal pain, admitted for further evaluation and treatment of partial SBO. SBO - CT abdomen/pelvis: partial SBO, transition zone in LLQ. f/u official read - CT chest: no PE - NG tube d/c'ed - NS @150cc/hr - ibuprofen 400mg PO q6h PRN - tylenol 650mg PO q6h PRN - toradol 30mg IV q6h PRN - zofran 4mg IV q6h PRN - f/u CXR 12pm and tomorrow 6am to avoid fluid overload - lactate 1.3-> repeat 1.4 - UA: 1+ proteins, 1+ ketones - General surgery consulted, Dr. Poe - recs appreciated - GI consulted, Dr. Pack -Rec CT enterography and follow up outpatient -HIDA scan-depressed gallbladder, ED 27%, normal EF threshold =35% HTN - resume home atenolol 50mg PO daily H/o Hypothyroid - f/u TSH, free T4 - resume home synthroid 75mcg PO daily PPx GI: not indicated at this time DVT: SCDs Advance diet as tolerated. Follow up with general surgery recs Pt seen and case reviewed with Dr. Judge <Jesus Judge - Last Filed: 09/26/18 07:40> Objective - Vital Signs/Intake and Output Vital Signs (last 24 hours): Temp Pulse Resp BP Pulse Ox 97.6 F 63 20 148/78 97 09/26/18 00:00 09/26/18 00:00 09/26/18 00:00 09/26/18 00:00 09/26/18 00:00 Intake and Output: 09/26/18 09/26/18 06:59 18:59 Intake Total 400 Balance 400 - Medications Medications: Current Medications Acetaminophen (Tylenol 325mg Tab) 650 mg PO Q6 PRN PRN Reason: Fever >100.4 F Last Admin: 09/25/18 20:24 Dose: 650 mg Atenolol (Tenormin) 50 mg PO DAILY [facility] Last Admin: 09/25/18 13:45 Dose: 50 mg Ibuprofen (Motrin Tab) 400 mg PO Q6 PRN PRN Reason: Pain, Mild (1-3) Ketorolac Tromethamine (Toradol) 30 mg IV Q6 PRN PRN Reason: Pain, moderate (4-7) Last Admin: 09/25/18 22:33 Dose: 30 mg Levothyroxine Sodium (Synthroid) 75 mcg PO DAILY@0630 [facility] Last Admin: 09/26/18 05:36 Dose: 75 mcg Ondansetron HCl (Zofran Inj) 4 mg IVP Q6 PRN PRN Reason: Nausea/Vomiting - Labs Labs: 09/26/18 07:09 09/25/18 06:13 PT 11.3 SECONDS (9.7-12.2) 09/24/18 02:59 INR 1.0 09/24/18 02:59 APTT 28 SECONDS (21-34) 09/24/18 02:59 Attending/Attestation - Attestation I have personally seen and examined this patient.: Yes I have fully participated in the care of the patient.: Yes I have reviewed all pertinent clinical information, including history, physical exam and plan: Yes Notes (Text): Medical attending: Patient was seen and examined by me. Reviewed the above note by the resident and agree with the above The patient was not in any acute distress. She reported feeling better with less pain. She was also taking clear liquid diet slowly and tolerating this. She reported having one BM earlier in the morning before we saw. Jesus Judge
--- NOTE | 2018-09-25 17:34 | CARD ---
APPROVED REPORT Date of service: 09/24/2018 EKG Measurement Heart [id number] <Conclusion> Normal sinus rhythm Normal ECG
[2018-09-26] MEDS: Levothyroxine 75 MCG TAB PO SCH (05:36)
[2018-09-26 07:19] LABS: BASO % 0.4 % (0.0-2.0); EOS # 0.2 K/uL (0.0-0.7); EOS % 5.4 % (0.0-4.0); HEMOGLOBIN 12.9 g/dL (11.0-16.0); LYMPH # 1.9 K/uL (1.0-4.3); LYMPH % 59.7 % (20.0-40.0); MEAN CELL VOLUME 90.4 fL (81.0-99.0); MEAN CORPUSCULAR HEMOGLOBIN 30.3 pg (27.0-31.0); MEAN CORPUSCULAR HGB CONC 33.5 g/dL (33.0-37.0); MEAN PLATELET VOLUME 11.2 fL (7.2-11.7); MONO # 0.2 K/uL (0.0-0.8); MONO % 7.8 % (0.0-10.0); NEUT # 0.8 K/uL (1.8-7.0); NEUT % 26.7 % (50.0-75.0); RBC 4.26 Mil/uL (3.80-5.20); RED CELL DISTRIBUTION WIDTH 13.7 % (11.5-14.5); WHITE BLOOD COUNT 3.2 K/uL (4.8-10.8)
[2018-09-26 07:43] LABS: ALB/GLOB RATIO 1.4 (1.0-2.1); ALBUMIN 3.8 g/dL (3.5-5.0); ALT/SGPT 35 U/L (9-52); AST/SGOT 33 U/L (14-36); BLOOD UREA NITROGEN 15 mg/dL (7-17); CALCIUM 8.3 mg/dl (8.6-10.4); GFR NON-AFRICAN AMERICAN > 60
--- NOTE | 2018-09-26 10:29 | CP.PCM.PN ---
Subjective - Date & Time of Evaluation Date of Evaluation: 09/26/18 Time of Evaluation: 10:26 - Subjective Subjective: Covering Dr Pack No RUQ pain today. Tolerated solid breakfast HIDA- Low GB EF Chronic constipation Objective - Vital Signs/Intake and Output Vital Signs (last 24 hours): Temp Pulse Resp BP Pulse Ox 97.7 F 63 20 130/71 97 09/26/18 08:13 09/26/18 08:13 09/26/18 08:13 09/26/18 08:13 09/26/18 08:13 Intake and Output: 09/26/18 09/26/18 06:59 18:59 Intake Total 400 Balance 400 - Medications Medications: Current Medications Acetaminophen (Tylenol 325mg Tab) 650 mg PO Q6 PRN PRN Reason: Fever >100.4 F Last Admin: 09/25/18 20:24 Dose: 650 mg Atenolol (Tenormin) 50 mg PO DAILY [facility] Last Admin: 09/25/18 13:45 Dose: 50 mg Ibuprofen (Motrin Tab) 400 mg PO Q6 PRN PRN Reason: Pain, Mild (1-3) Ketorolac Tromethamine (Toradol) 30 mg IV Q6 PRN PRN Reason: Pain, moderate (4-7) Last Admin: 09/25/18 22:33 Dose: 30 mg Levothyroxine Sodium (Synthroid) 75 mcg PO DAILY@0630 [facility] Last Admin: 09/26/18 05:36 Dose: 75 mcg Ondansetron HCl (Zofran Inj) 4 mg IVP Q6 PRN PRN Reason: Nausea/Vomiting - Labs Labs: 09/26/18 07:09 09/26/18 07:09 PT 11.3 SECONDS (9.7-12.2) 09/24/18 02:59 INR 1.0 09/24/18 02:59 APTT 28 SECONDS (21-34) 09/24/18 02:59 - Constitutional Appears: Well, No Acute Distress - Head Exam Head Exam: NORMOCEPHALIC - Respiratory Exam Respiratory Exam: Clear to Ausculation Bilateral - Cardiovascular Exam Cardiovascular Exam: REGULAR RHYTHM - GI/Abdominal Exam GI & Abdominal Exam: Soft. absent: Tenderness, Mass Assessment and Plan (1) RUQ pain Assessment & Plan: Likely functional No gallstones on several Sonos and CTs Low GB EF Rec: conservative management Adv diet as tolerated Status: Acute (2) GERD (gastroesophageal reflux disease) Assessment & Plan: Stable Status: Acute
--- NOTE | 2018-09-26 14:35 | CP.PCM.PN ---
Subjective - Date & Time of Evaluation Date of Evaluation: 09/26/18 Time of Evaluation: 14:33 - Subjective Subjective: Surgery: Dr. Poe Pt seen and examined. No acute overnight events. Pt states she feels a lot better and denies any more abdominal pain. Pt admits to tolerating a regular diet, having BM & flatus. Denies nausea/vomiting, fevers/chills. Objective - Vital Signs/Intake and Output Vital Signs (last 24 hours): Temp Pulse Resp BP Pulse Ox 97.7 F 63 20 130/71 97 09/26/18 08:13 09/26/18 08:13 09/26/18 08:13 09/26/18 08:13 09/26/18 08:13 Intake and Output: 09/26/18 09/26/18 06:59 18:59 Intake Total 400 Balance 400 - Medications Medications: Current Medications Acetaminophen (Tylenol 325mg Tab) 650 mg PO Q6 PRN PRN Reason: Fever >100.4 F Last Admin: 09/25/18 20:24 Dose: 650 mg Atenolol (Tenormin) 50 mg PO DAILY [facility] B[facility]S [facility] Last Admin: 09/26/18 10:35 Dose: 50 mg Ibuprofen (Motrin Tab) 400 mg PO Q6 PRN PRN Reason: Pain, Mild (1-3) Ketorolac Tromethamine (Toradol) 30 mg IV Q6 PRN PRN Reason: Pain, moderate (4-7) Last Admin: 09/25/18 22:33 Dose: 30 mg Levothyroxine Sodium (Synthroid) 75 mcg PO DAILY@0630 [facility] 234 [facility]S [facility] Last Admin: 09/26/18 05:36 Dose: 75 mcg Ondansetron HCl (Zofran Inj) 4 mg IVP Q6 PRN PRN Reason: Nausea/Vomiting - Labs Labs: 09/26/18 07:09 09/26/18 07:09 PT 11.3 SECONDS (9.7-12.2) 09/24/18 02:59 INR 1.0 09/24/18 02:59 APTT 28 SECONDS (21-34) 09/24/18 02:59 - Constitutional Appears: Well, No Acute Distress - Head Exam Head Exam: ATRAUMATIC, NORMOCEPHALIC - Eye Exam Eye Exam: Normal appearance - ENT Exam ENT Exam: Mucous Membranes Moist - Respiratory Exam Respiratory Exam: NORMAL BREATHING PATTERN - Cardiovascular Exam Cardiovascular Exam: RRR - GI/Abdominal Exam GI & Abdominal Exam: Soft. absent: Distended, Guarding, Tenderness, Rebound - Extremities Exam Extremities Exam: absent: Tenderness - Neurological Exam Neurological Exam: Alert, Awake, Oriented x3 - Skin Skin Exam: Dry, Warm Assessment and Plan - Assessment and Plan (Free Text) Assessment: 73F with abdominal pain r/o cholecystitis Plan: - HIDA negative for cystic duct obstruction - no plan for surgical intervention at this time - ok to DC from surgical standpoint - d/w Dr. Deepika Lucio
[2018-09-26 15:45] VITALS: BP 124/67; PULSE 55; TEMP 98; O2SAT 95
--- NOTE | 2018-09-26 16:58 | CP.PCM.DIS ---
Provider - Provider Date of Admission: 09/24/18 06:15 Attending physician: Willi Sierra Primary care physician: PMD: Dr. Cunningham Consults: 09/24/18 07:18 Case Management Referral Routine Comment: Physician Instructions: Reason For Exam: Reason for Referral: Discharge Planning 09/24/18 07:22 General Surgery Consult Routine Comment: Consulting Provider: Travis Poe Consulting Physician: Travis Poe Reason for Consult: partial SBO 09/24/18 09:17 Gastroenterology Consult Routine Comment: Consulting Provider: Misael Pack Consulting Physician: Misael Pack Reason for Consult: pt with partial SBO, known to you Time Spent in preparation of Discharge (in minutes): 45 Hospital Course - Lab Results Lab Results: Most Recent Lab Values WBC 3.2 K/uL (4.8-10.8) L 09/26/18 07:09 RBC 4.26 Mil/uL (3.80-5.20) 09/26/18 07:09 Hgb 12.9 g/dL (11.0-16.0) 09/26/18 07:09 Hct 38.5 % (34.0-47.0) 09/26/18 07:09 MCV 90.4 fL (81.0-99.0) 09/26/18 07:09 MCH 30.3 pg (27.0-31.0) 09/26/18 07:09 MCHC 33.5 g/dL (33.0-37.0) 09/26/18 07:09 RDW 13.7 % (11.5-14.5) 09/26/18 07:09 Plt Count 113 K/uL (130-400) L 09/26/18 07:09 MPV 11.2 fL (7.2-11.7) 09/26/18 07:09 Neut % (Auto) 26.7 % (50.0-75.0) L 09/26/18 07:09 Lymph % (Auto) 59.7 % (20.0-40.0) H 09/26/18 07:09 [place] % (Auto) 7.8 % (0.0-10.0) 09/26/18 07:09 Eos % (Auto) 5.4 % (0.0-4.0) H 09/26/18 07:09 Baso % (Auto) 0.4 % (0.0-2.0) 09/26/18 07:09 Neut # (Auto) 0.8 K/uL (1.8-7.0) L 09/26/18 07:09 Lymph # (Auto) 1.9 K/uL (1.0-4.3) 09/26/18 07:09 Crook # (Auto) 0.2 K/uL (0.0-0.8) 09/26/18 07:09 Eos # (Auto) 0.2 K/uL (0.0-0.7) 09/26/18 07:09 Baso # (Auto) 0.0 K/uL (0.0-0.2) 09/26/18 07:09 Differential Comment 09/26/18 07:09 PT 11.3 SECONDS (9.7-12.2) 09/24/18 02:59 INR 1.0 09/24/18 02:59 APTT 28 SECONDS (21-34) 09/24/18 02:59 D-Dimer, Quantitative 288 ng/mlDDU (0-243) H 09/24/18 02:59 Sodium 137 mmol/L (132-148) 09/26/18 07:09 Potassium 4.2 mmol/L (3.6-5.2) 09/26/18 07:09 Chloride 104 mmol/L (98-107) 09/26/18 07:09 Carbon Dioxide 26 mmol/L (22-30) 09/26/18 07:09 Anion Gap 11 (10-20) 09/26/18 07:09 BUN 15 mg/dL (7-17) 09/26/18 07:09 Creatinine 0.6 mg/dL (0.7-1.2) L 09/26/18 07:09 Est GFR ( Amer) > 60 09/26/18 07:09 Est GFR (Non-Af Amer) > 60 09/26/18 07:09 Random Glucose 85 mg/dL (65-105) 09/26/18 07:09 Hemoglobin A1c 5.7 % (4.2-6.5) 09/25/18 06:13 Lactic Acid 1.4 mmol/L (0.7-2.1) 09/24/18 19:47 Calcium 8.3 mg/dl (8.6-10.4) L 09/26/18 07:09 Total Bilirubin 0.4 mg/dL (0.2-1.3) 09/26/18 07:09 AST 33 U/L (14-36) 09/26/18 07:09 ALT 35 U/L (9-52) 09/26/18 07:09 Alkaline Phosphatase 46 U/L (38-126) 09/26/18 07:09 Troponin I < 0.0120 ng/mL (0.00-0.120) 09/24/18 02:59 Total Protein 6.6 g/dL (6.3-8.3) 09/26/18 07:09 Albumin 3.8 g/dL (3.5-5.0) 09/26/18 07:09 Globulin 2.8 gm/dL (2.2-3.9) 09/26/18 07:09 Albumin/Globulin Ratio 1.4 (1.0-2.1) 09/26/18 07:09 Free T4 1.07 ng/dL (0.78-2.19) 09/24/18 19:47 TSH 3rd Generation 0.21 mIU/L (0.46-4.68) L 09/24/18 19:47 Urine Color Yellow (YELLOW) 09/24/18 21:58 Urine Clarity Clear (Clear) 09/24/18 21:58 Urine pH 7.0 (5.0-8.0) 09/24/18 21:58 Ur Specific [place] 1.028 (1.003-1.030) 09/24/18 21:58 Urine Protein 1+ mg/dL (NEGATIVE) H 09/24/18 21:58 Urine Glucose (UA) Normal mg/dL (Normal) 09/24/18 21:58 Urine Ketones 1+ mg/dL (NEGATIVE) H 09/24/18 21:58 Urine Blood Negative (NEGATIVE) 09/24/18 21:58 Urine Nitrate Negative (NEGATIVE) 09/24/18 21:58 Urine Bilirubin Negative (NEGATIVE) 09/24/18 21:58 Urine Urobilinogen Normal mg/dL (0.2-1.0) 09/24/18 21:58 Ur Leukocyte Esterase Neg Hattie/uL (Negative) 09/24/18 21:58 Urine WBC (Auto) 1 /hpf (0-5) 09/24/18 21:58 Urine RBC (Auto) 1 /hpf (0-3) 09/24/18 21:58 Ur Squamous Epith Cells 5 /hpf (0-5) 09/24/18 21:58 Urine Bacteria Rare (<OCC) 09/24/18 21:58 Hepatitis A IgM Ab Negative (NEGATIVE) 09/25/18 06:13 Hep Bs Antigen Negative (NEGATIVE) 09/25/18 06:13 Hep B Core IgM Ab Negative (NEGATIVE) 09/25/18 06:13 Hepatitis C Antibody Negative (NEGATIVE) 09/25/18 06:13 HIV 1&2 Antibody Screen Negative (NEGATIVE) 09/25/18 06:13 - Hospital Course Hospital Course: HPI: Pt is a 73yoF with PMH of Hypothyroid, HTN, cholelithiasis, presenting to ED with abdominal pain. She reports the abdominal pain began 3 years ago, but acutely worsened over the past 7 days. She reports R sided abdominal pain that radiates to the back and R shoulder, which she rates 10/10. She describes the pain as burning and intermittent. She tried taking baking soda at home which did not provide relief. Pt reports associated vomiting all day yesterday, which was food-colored. Pt denies blood in vomit or stool. She reports normal formed bowel movements, denying any diarrhea or constipation. She complains of chills, but denies fever, chest pain, shortness of breath, or dysuria. She also complains of a burning sensation in the lower abdomen/bladder area, but denies pyuria. She currently reports improvement of the abdominal pain. Pt reports last colonoscopy and EGD 09/01, with normal results aside from benign diverticula. Hospital Course: Patient was admitted on 09/24/18 for abdominal pain and partial SBO. While in the ED, patient had CT of the abdomen and pelvis which showed a partial SBO in transition zone of LLQ. NG tube was placed and IV fluids were started. General surgery (Dr. Poe) and GI (Dr. Pack) were consulted. GI evaluated the patients and recommended CT enterograpy and to follow up outp atient. Surgery recommended ordering HIDA scan. HIDA scan was negative for cystic duct obstruction. No surgical intervention was needed at that time. Patient started on liquid diet on 09/25/18, and advanced to solid on 09/26/18. Patient tolerated diet and had a normal BM. Patient is stable for discharge to home. Patient must follow up with her GI physician, Dr. Pack, and PMD within one week of discharge. This is a brief summary of the hospital course. Please see EMR for more details. Discharge Exam - Head Exam Head Exam: ATRAUMATIC, NORMOCEPHALIC - Eye Exam Eye Exam: EOMI, Normal appearance - ENT Exam ENT Exam: Mucous Membranes Moist - Respiratory Exam Respiratory Exam: NORMAL BREATHING PATTERN, UNREMARKABLE. absent: Rales, Rhonchi, Wheezes, Respiratory Distress - Cardiovascular Exam Cardiovascular Exam: REGULAR RHYTHM, +S1, +S2 - GI/Abdominal Exam GI & Abdominal Exam: Normal Bowel Sounds, Soft, Unremarkable. absent: Di stended, Tenderness - Extremities Exam Extremities exam: normal inspection - Neurological Exam Neurological exam: Alert, Oriented x3 - Psychiatric Exam Psychiatric exam: Normal Affect, Normal Mood - Skin Skin Exam: Dry, Intact, Normal Color Discharge Plan - Follow Up Plan Condition: STABLE Disposition: HOME/ ROUTINE Instructions: Acute Abdominal Pain (DC), Acute Abdominal Pain (GEN) Additional Instructions: Patient is stable for discharge to home. Patient must continue home medications. Patient should follow bland diet for 2-3days. Please follow up with your GI physician, Dr. Pack, within one week of discharge. Please follow up with PMD within one week of discharge. If symptoms worsen or reoccur, patient should return to nearest ED. Referrals: Misael Pack MD [Staff Provider] -
== END 2018-09-26 19:22 | disposition home or self-care (01) | DRG 390 ==
LOC: C.ER 01:47 → C.9E 06:15 → C.3T 17:02
PROVIDERS: ADMIT Internal Medicine; ATTEND Internal Medicine
DX: K56.600 Partial intestinal obstruction, unspecified as to cause (principal); I10 Essential (primary) hypertension; E03.9 Hypothyroidism, unspecified; K57.30 Diverticulosis of large intestine without perforation or abscess without bleeding; K76.0 Fatty (change of) liver, not elsewhere classified; Z87.442 Personal history of urinary calculi; Z90.49 Acquired absence of other specified parts of digestive tract